=== PATIENT | female | born 1975 | race Caucasian/White ===

== ENCOUNTER 2017-02-10 21:41 | Emergency (ER) | payer SELFPAY ==
[~2017-02-10] VITALS: Ht 162.6 cm; Wt 56.2 kg
--- NOTE | ~2017-02-10 | CT71 ---
[facility] A Service of [facility] RADIOLOGY TEXT RESULTS PATIENT: JETT SCOTT LOCATION: SED : 77 UNIT #: [id number] AGE: [address]: Bonilla Dumont MD SEX: F ORDER DR: [id number] [place] [id number] E MR#: [id number] #: [id number] NAME: JETT SCOTT : 1975 SEX: F STUDY DATE/TIME: 02/10/2017 UNIT: SED ROOM: STUDY DESCRIPTION: CT Head Wo Contrast Attending Physician: Bonilla Dumont M.D. Ordering Physician: Bonilla Dumont M.D. MEDICAL IMAGING REPORT This report is preliminary unless electronic signature is present. EXAM Head CT 02/10/2017 INDICATIONS Headache with nausea that started this morning. Hypertension today. TECHNIQUE Axial images were obtained from the base to the vertex without contrast. This CT exam was performed with one or more of the following radiation dose reduction techniques: automatic exposure control, adjustment of mA and/or kV according to patient size, and iterative reconstruction. FINDINGS Ventricular size and configuration are normal. There is subarachnoid hemorrhage noted, predominately at the base of the brain extending out into the inner hemispheric falx anteriorly and into the middle cranial fossa on both sides. There may be a trace amount of blood in the fourth ventricle. No definite hemorrhage is seen in the lateral or third ventricles. Findings would suggest a ruptured aneurysm. Sierra-white matter differentiation is preserved. No masses are seen. No skull fracture. Findings have been discussed directly with Dr. Dumont in the emergency room at the time of this dictation. IMPRESSION Acute subarachnoid hemorrhage centered about the base of the brain and extending around the brainstem and into both middle cranial fossas, as well as into the inner hemispheric falx anteriorly. Findings would suggest a ruptured aneurysm. No midline shift or other mass effect. Ventricular size is normal. The rest of the brain is normal. There is [facility] A Service [facility] RADIOLOGY TEXT RESULTS PATIENT: JETT SCOTT LOCATION: SED : 77 UNIT #: [id number] AGE: [address]: Bonilla Dumont MD SEX: F ORDER DR: probably some acute hemorrhage in the fourth ventricle. No definite hemorrhage is seen in the lateral or third ventricles. STAT * RESULT Dictated by... Gee Tovar Jr., M.D. THIS IS AN ELECTRONICALLY VERIFIED REPORT Gee Tovar Jr., M.D. at 02/11/2017 4:20 AM YUVAL/oscar TD: 02/10/2017 23:27 JOB #: [id number] MEDICAL IMAGING REPORT Page 1 of 1
[2017-02-10 22:48] LABS: BASOPHIL% 0.2 % (0-2.5); EOSINOPHIL% 0.4 % (0.0-7.0); HEMATOCRIT 40.5 % (35.0-45.0); HEMOGLOBIN 13.8 gm/dL (12.0-16.0); LYMPHOCYTE# 0.6 X10e3 (1.0-3.5); LYMPHOCYTE% 6.6 % (17.0-45.0); MEAN CELL VOLUME 87.9 FL (83-96); MEAN CORPUSCULAR HGB CONC 34.1 g/dL (30-36); MEAN PLATELET VOLUME 7.8 FL (6.5-11.5); MONOCYTE# 0.1 X10e3 (0-1.0); MONOCYTE% 1.1 % (3.0-12.0); NEUTROPHIL% 91.7 % (40-75); PLATELET COUNT 273 X10e3 (140-420); RED BLOOD COUNT 4.61 X10e (3.90-5.30); RED CELL DISTRIBUTION WIDTH 14.5 % (11.0-15.5); WHITE BLOOD COUNT 8.7 X10e3 (4.0-10.5)
[2017-02-10 22:50] LABS: DIFF IND NO
[2017-02-10 22:56] LABS: INR 1.2; PROTHROMBIN TIME (PATIENT) 13.5 SECONDS (9.5-12.4)
[2017-02-10 23:03] LABS: PARTIAL THROMBOPLASTIN TIME 26.8 SECONDS (25.6-38.1)
[2017-02-10 23:04] LABS: CALCIUM SERUM 9.7 mg/dL (8.4-10.2); GLOM FILT RATE Estimated 70.4 mL/min (>60); POTASSIUM 4.1 mmol/L (3.5-5.1)
== END 2017-02-11 00:42 | disposition hospice, home (50) ==
LOC: SED 21:41
PROVIDERS: Emergency Medicine
DX: I60.9 Nontraumatic subarachnoid hemorrhage, unspecified (principal); I10 Essential (primary) hypertension; Z88.5 Allergy status to narcotic agent; Z88.8 Allergy status to other drugs, medicaments and biological substances
CPT/HCPCS: 70450; 80048; 84703; 85025; 85610; 85730; 96365; 96366; 96375; 99291; J1953; J2270; J2405